=== PATIENT | female | born 1965 | race Caucasian/White ===

== ENCOUNTER → 2023-01-21 07:46 | Outpatient (CLI) | payer OTHER, SELFPAY ==
--- NOTE | 2023-01-21 | DI.MRI.S_ITS ---
PROCEDURE: MR ANKLE RT WO CON INDICATIONS: EVAL PERONEAL TENDONS TECHNIQUE: Noncontrast sagittal T1 spin echo and T2 fast spin echo with fat saturation, axial proton density fast spin echo and T2 fast spin echo with fat saturation, coronal T1 spin echo and T2 fast spin echo with fat saturation through the ankle/hindfoot. COMPARISON: None. FINDINGS: Image quality: Excellent. Bones and joints: Mild midfoot and hindfoot joint osteoarthritic changes are seen with joint space narrowing and subchondral sclerosis. There is mild marrow edema involving 5th metatarsal base and proximal shaft without discrete fracture line.. No fracture or dislocation. No hindfoot coalitions. No osteochondral injuries of the talar dome. Small to moderate tibiotalar joint effusion is seen, no gross loose bodies. Medial structures: The posterior tibialis tendon is thickened at the level of talonavicular joint and distal talus with intrasubstance T2 hyperintense signal. The flexor digitorum longus, and flexor hallucis longus tendons are intact. The posterior tibial neurovascular bundle appears normal within the tarsal tunnel, without extrinsic mass effect. The deep layer (anterior and posterior tibiotalar ligaments) and superficial layer (tibionavicular, tibiospring, and tibiocalcaneal ligaments) of the deltoid ligament appear normal. The spring ligament components (superomedial calcaneonavicular, medioplantar oblique calcaneonavicular, and inferoplantar longitudinal ligaments) are intact. Lateral structures: The anterior talofibular, calcaneofibular, and posterior talofibular ligaments appear intact. More superiorly, there is low to moderate grade intrasubstance partial-thickness tear involving anterior talofibular fibular ligament. Low-grade intrasubstance partial-thickness tear involving posterior tibial fibular ligament is seen. The tibiofibular syndesmosis is normal in width at 2 mm or less. The peroneus longus and brevis tendons are thickened with intrasubstance T2 hyperintense signal at the level of lateral malleolus tip extending to the level of calcaneocuboid joint particularly involving peroneus longus tendon Adjacent bony peroneal tubercle and retrotrochlear prominence are normal in size. The sinus tarsi demonstrates normal fatty signal, without edema, fibrosis, or cyst formation. Visualized sinus tarsi components (cervical ligament, interosseous talocalcaneal ligament, roots of the inferior extensor retinaculum) appear normal. The calcaneonavicular and calcaneocuboid components of the bifurcate ligament appear intact. The dorsal calcaneocuboid ligament appears intact. Anterior structures: The tibialis anterior is thickened along anterior aspect of tibiotalar joint. The extensor hallucis longus, and extensor digitorum longus tendons appear intact. The dorsal talonavicular ligament appears intact. Posterior and plantar structures: Achilles tendon is intact. Medial and lateral bands of the plantar fascia are of normal thickness. No abductor digiti quinti muscle atrophy to suggest Weldon neuropathy. IMPRESSION: 1. Suggestion of bony contusion involving 5th metatarsal base and proximal shaft. Mild midfoot and hindfoot joint osteoarthritis. No acute fracture or dislocation. Moderate tibiotalar joint effusion, no gross loose bodies. No osteochondral injuries of talar dome. 2. Mild tendinosis involving posterior tibialis tendon at the level of mid to distal talus and talonavicular joint. 3. Mild to moderate peroneus tendinosis at the level of lateral malleolus tip extending to the level of calcaneocuboid joint. 4. Low to moderate grade partial-thickness tear involving anterior tibial fibular ligament and low-grade intrasubstance partial-thickness tear involving posterior tibial fibular ligament. Medial ankle ligaments are intact. 5. Tibialis anterior tendinosis at the level of tibiotalar joint. Dictated by: Ahmet Coates M.D. on 01/21/2023 at 11:25 Approved by: Ahmet Coates M.D. on 01/21/2023 at 11:32
== END ==
PROVIDERS: PCP Family Medicine; Referring Provider Orthopaedic Surgery Foot and Ankle Surgery; Visit Provider Orthopaedic Surgery Foot and Ankle Surgery
DX: M76.71 Peroneal tendinitis, right leg (principal); M19.071 Primary osteoarthritis, right ankle and foot; S93.431A Sprain of tibiofibular ligament of right ankle, initial encounter; M25.474 Effusion, right foot
CPT/HCPCS: 73721